=== PATIENT | male | born 1980 | race Caucasian/White ===

== ENCOUNTER 2017-03-11 14:00 | Emergency (ER) | payer BC, OTHER ==
[2017-03-11 14:18] VITALS: BP 128/83; PULSE 82; RESP 14; TEMP 98.4; O2SAT 95
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
== END 2017-03-11 14:52 | disposition home or self-care (01) ==
LOC: CED 14:00
DX: S00.33XA Contusion of nose, initial encounter (principal); S60.511A Abrasion of right hand, initial encounter; S09.90XA Unspecified injury of head, initial encounter; V86.52XA Driver of snowmobile injured in nontraffic accident, initial encounter